=== PATIENT | male | born 1985 | race Caucasian/White ===

== ENCOUNTER 2019-07-09 11:33 | Emergency (ER) | payer OTHER, SELFPAY ==
--- NOTE | 2019-07-09 11:45 | DI.RAD.S_ITS ---
PROCEDURE: XR FINGER LT MIN 2V INDICATIONS: table saw accident TECHNIQUE: AP hand, 2 views of the left finger(s) acquired. COMPARISON: None. FINDINGS: Bones: Intra-articular fracture involving the proximal phalanx of the thumb at the IP joint. There is severe subluxation/dislocation of the thumb IP joint. Probable fracture involving the base of the distal phalanx of the thumb although not well visualized radiographically. Associated soft tissue laceration and swelling. IMPRESSION: Comminuted fracture dislocation at the thumb interphalangeal joint as above Dictated by: Deshawn Monahan M.D. on 07/09/2019 at 12:07 Approved by: Deshawn Monahan M.D. on 07/09/2019 at 12:09
[2019-07-09 11:53] VITALS: BP 122/71; PULSE 68; RESP 18; TEMP 36.7; O2SAT 99; BMI 26.6
[2019-07-09] MEDS: TET,DIPH,PERTUSS(ACELL),VAC/PF 0.5 ML SYRINGE IM (12:02)
[2019-07-09] MEDS: LIDO 1%/SOD BICARB 8.4% (10ML) 10 ML SYRINGE INJ (12:02)
[2019-07-09] MEDS: CEFAZOLIN 1 GM/50 ML FROZ.PIGGY IV (12:24)
--- NOTE | 2019-07-09 12:43 | ED.WOUNDLAC ---
HPI - Wound/Laceration <BERNARDA Denton - Last Filed: 07/09/19 16:36> General Chief Complaint: Wound/Laceration Stated Complaint: Cut thumb Time Seen by Provider: 07/09/19 11:39 Source: patient Mode of arrival: Family Vehicle Limitations: no limitations History of Present Illness HPI narrative: This is a 33-year-old male, nonsmoker, who presents to ED with chief complain of left thumb laceration by a table saw which occurred at 11:30 a.m. today. Patient was working on a fence and cutting a wooden board and states he was distracted briefly and looked away and table so grab his gloved finger. Patient right dominant hand. Is not sure last tetanus immunization. Patient reports is unable to feel/has sensation to left tip of thumb. Patient reports is unable to flex his affected thumb. Otherwise, patient is healthy and is not taking medications currently except multi-vitamins. Last meal was around 8 this morning. He had a few sips of water before coming into ED. Related Data Home Medications Medication Instructions Recorded Confirmed multivitamin with minerals [Daily 1 tab PO DAILY 07/09/19 07/09/19 Multivitamin-Minerals] Previous Rx's Medication Instructions Recorded cephalexin [Keflex] 500 mg PO Q6H 10 Days #40 cap 07/09/19 ondansetron 4 mg PO Q6H PRN #20 tab 07/09/19 oxycodone-acetaminophen [Percocet] 1 tab PO QID PRN #20 tab 07/09/19 Allergies Allergy/AdvReac Type Severity Reaction Status Date / Time hydrocodone [From Vicodin] Allergy Intermediate Nausea Verified 07/09/19 12:21 Review of Systems <BERNARDA Denton - Last Filed: 07/09/19 16:36> Review of Systems Narrative: General: Denies fever, chills, fatigue, malaise, sweats. HEENT: Denies sinus pain, ear pain, sore throat, difficulty swallowing, dizziness. Respiratory: Denies dyspnea, cough, wheezing, hemoptysis, sputum. Cardiovascular: Denies chest pain, palpitations, orthopnea, edema. Gastrointestinal: Denies nausea, vomiting, abdominal pain, diarrhea, constipation, melena. : Denies dysuria, frequency, incontinence, hematuria, urinary retention. Musculoskeletal: See HPI Skin: Denies rash, skin lesions, or other. Neurologic: Denies weakness, headache, numbness, change in speech, confusion, seizures, incoordination. Psychiatric: No concerning psychosocial issues. 12-point review of systems is negative except for those stated above. Patient History <BERNARDA Denton - Last Filed: 07/09/19 16:36> Medical History Healthy adult male (Acute) Social History Smoking Status: Never smoker Smoking Status: Never smoker alcohol intake frequency: 0-2 drinks per day Substance Use Type: does not use Exam <BERNARDA Denton - Last Filed: 07/09/19 16:36> Narrative Exam Narrative: General appearance: well developed, well nourished, in no acute distress. Head: normocephalic, atraumatic, no scalp lesions, non-tender. ENT: Hearing grossly intact. Nose without bleeding, purulent discharge. Mucous membrane moist, no mucosal lesion. Throat without erythema, tonsillar hypertrophy or exudate. Uvula in midline, airway patent. Neck/Thyroid: neck supple, full range of motion, no visible masses or meningeal signs. No JVD, non-tender without lymphadenopathy. Skin: no suspicious rashes, lesions over visible areas. Warm and dry and appropriate color for ethnicity. Heart: no clubbing, no cyanosis, no edema. S1 and S2 normal. RRR w/o murmurs, clicks, or bruits. Lungs: Breathing even and unlabored. No stridor. No accessory muscles used. Able to speak in full sentences. Chest: normal shape and expansion. Abdomen: non-obese, non-distended. Neurologic: alert and oriented. Cognitive exam, [employer] and PNS grossly intact on informal exam. Psych: good eye contact, normal affect. Initial Vital Signs Initial Vital Signs: Vital Signs Temperature 98.1 F 07/09/19 11:53 Pulse Rate 68 07/09/19 11:53 Respiratory Rate 18 07/09/19 11:53 Blood Pressure 122/71 07/09/19 11:53 Pulse Oximetry 99 07/09/19 11:53 Extrem Left upper extremity: hand Details: abnormal to inspection, neuromotor exam abnormal, neurosensory exam abnormal Details: radial nerve sensory function abnormal (Unable to feel distal left thumb), tendon exam abnormal (Unable to flex distal left thumb), tenderness, vascular exam Details: radial pulse present and abnormal capillary refill Details: of the thumb, abnormal ROM of finger and laceration (Palmar aspect diagonal deep laceration in IP joint in Left thumb with slow oozing bleeding) <Lydia Valentino MD - Last Filed: 07/09/19 17:27> Initial Vital Signs Initial Vital Signs: Vital Signs Temperature 98.1 F 07/09/19 11:53 Pulse Rate 68 07/09/19 11:53 Respiratory Rate 18 07/09/19 11:53 Blood Pressure 122/71 07/09/19 11:53 Pulse Oximetry 99 07/09/19 11:53 Procedures <BERNARDA Denton - Last Filed: 07/09/19 16:36> Laceration Repair Laceration 1: Site: hand (thumb in IP joint steve aspect, diagnoal appearance) Side (If applicable): left Size (cm): 6 Description: irregular Depth: involves muscle layer and involves tendon Local Anesthetic: lidocaine 1% and with bicarb Amount of anesthesia used (mL): 10 (given over 2 periods, diginal block) Pre-repair: wound explored and irrigated extensively Skin layer closed with: nylon Size (cm): 3-0 Number of sutures: 5 Technique: simple, interrupted Orthopedic Splinting/Casting Injury #1: Upper Extremity Injury Location: finger (thumb) Upper Extremity Immobilizer: thumb spica Post splinting neuro exam: intact Post splinting vascular exam: intact Placed by: Nursing Scores <BERNARDA Denton - Last Filed: 07/09/19 16:36> GCS [place] coma scale eye opening: Spontaneous Naomi coma scale verbal response: Orientated Naomi coma scale motor response: Obey commands [place] coma scale total score: 15 Course <BERNARDA Denton - Last Filed: 07/09/19 16:36> Orders Ordered: ED Orders 07/09/19 11:45 XR finger LT min 2V Stat Discontinued Medications Diphtheria/Tetanus/Acell Pertussis (Adacel) 0.5 ml IM .ONCE ONE Stop: 07/09/19 11:55 Last Admin: 07/09/19 12:02 Dose: 0.5 ml Documented by: ILENE Cefazolin Sodium/Dextrose (Ancef) 1 gm in 50 mls @ 200 mls/hr IV NOW ONE Stop: 07/09/19 12:34 Last Infusion: 07/09/19 12:46 Dose: 0 mls/hr Documented by: Admin: 07/09/19 12:24 Dose: 200 mls/hr Documented by: ILENE Lidocaine/Sodium Bicarbonate (Buffered Lidocaine 10 Ml Syr) 10 ml INJ NOW ONE Stop: 07/09/19 11:55 Last Admin: 07/09/19 12:02 Dose: 10 ml Documented by: ILENE Morphine Sulfate (Morphine) 4 mg IV NOW ONE Stop: 07/09/19 12:51 Last Admin: 07/09/19 12:58 Dose: Not Given Documented by: ILENE Ondansetron HCl (Zofran) 4 mg IV NOW ONE Stop: 07/09/19 12:51 Last Admin: 07/09/19 12:59 Dose: Not Given Documented by: ILENE Vital Signs Vital signs: Vital Signs - 8 hr 07/09/19 11:53 07/09/19 13:42 Temperature 98.1 F Pulse Rate 68 70 Respiratory Rate 18 14 Blood Pressure 122/71 Blood Pressure [Right Arm] 132/72 Pulse Oximetry 99 99 <Lydia Valentino MD - Last Filed: 07/09/19 17:27> Orders Ordered: ED Orders 07/09/19 11:45 XR finger LT min 2V Stat Discontinued Medications Diphtheria/Tetanus/Acell Pertussis (Adacel) 0.5 ml IM .ONCE ONE Stop: 07/09/19 11:55 Last Admin: 07/09/19 12:02 Dose: 0.5 ml Documented by: ILENE Cefazolin Sodium/Dextrose (Ancef) 1 gm in 50 mls @ 200 mls/hr IV NOW ONE Stop: 07/09/19 12:34 Last Infusion: 07/09/19 12:46 Dose: 0 mls/hr Documented by: Admin: 07/09/19 12:24 Dose: 200 mls/hr Documented by: ILENE Lidocaine/Sodium Bicarbonate (Buffered Lidocaine 10 Ml Syr) 10 ml INJ NOW ONE Stop: 07/09/19 11:55 Last Admin: 07/09/19 12:02 Dose: 10 ml Documented by: ILENE Morphine Sulfate (Morphine) 4 mg IV NOW ONE Stop: 07/09/19 12:51 Last Admin: 07/09/19 12:58 Dose: Not Given Documented by: ILENE Ondansetron HCl (Zofran) 4 mg IV NOW ONE Stop: 07/09/19 12:51 Last Admin: 07/09/19 12:59 Dose: Not Given Documented by: ILENE Vital Signs Vital signs: Vital Signs - 8 hr 07/09/19 11:53 07/09/19 13:42 Temperature 98.1 F Pulse Rate 68 70 Respiratory Rate 18 14 Blood Pressure 122/71 Blood Pressure [Right Arm] 132/72 Pulse Oximetry 99 99 MDM - Wound/Laceration <BERNARDA Denton - Last Filed: 07/09/19 16:36> Differential Diagnosis Differential diagnosis: Likely laceration and other (Fracture of thumb, dislocation of thumb, tendon injury of thumb) Medical Records Attestation: I reviewed the patient's medical records. Imaging Data XR-Thumb LT: Radiologist's Impression: [address] [address] XRay Report Signed Patient: Tobias Weber [facility]#: [id number] : 1985Acct:[id number] Age/Sex: 33 / MDate of Service: 07/09/19 Loc: ED Accession Number: [id number] Procedure: XR finger LT min 2V Ordering Provider: Tim Bautista PROCEDURE: XR FINGER LT MIN 2V INDICATIONS: table saw accident TECHNIQUE: AP hand, 2 views of the left finger(s) acquired. COMPARISON: None. FINDINGS: Bones: Intra-articular fracture involving the proximal phalanx of the thumb at the IP joint. There is severe subluxation/dislocation of the thumb IP joint. Probable fracture involving the base of the distal phalanx of the thumb although not well visualized radiographically. Associated soft tissue laceration and swelling. IMPRESSION: Comminuted fracture dislocation at the thumb interphalangeal joint as above Dictated by: Deshawn Monahan M.D. on 07/09/2019 at 12:07 Approved by: Deshawn Monahan M.D. on 07/09/2019 at 12:09 MDM Narrative Medical decision making narrative: This is a 33-year-old male who presents to ED with injury to non dominant hand left thumb injury with deep laceration in IP joint by a table saw for coming into ED around at 11:30 a.m.. Patient is unsure of last tetanus immunization and this has been updated today with Tdap. Patient reports no sensation distally to injury to left distal phalange with dusky color when patient was evaluated initially. There was slow oozing like bleeding from the injury site. Patient was unable to extend and flex distal phalanges of left thumb. X-ray test shows comminuted fracture and severe subluxation/dislocation at the thumb involving intra-articular IP joints . The patient was given Ancef of 1 gm via IV. was consulted via phone call at 1220 whether the patient could be seen by a hand surgeon or to transfer patient to trauma center. Dr. Milton called back and recommended to in place loose suture unaffected laceration and split the finger and to follow-up with hand surgeon, Dr. Garcia, on Sunday at [facility] orthopedics and have him continue with antibiotic medication. Please see procedural note on affected finger. This has been shared with the patient as a treatment plan. Patient discharged to home with Keflex 500 mg q.i.d. dose for 10 days, Percocet for pain management and Zofran for nausea as needed use. Reviewed wound care instruction with patient. Patient advised to follow-up with Dr. Garcia Sunday by calling [facility]. During the procedure, patient called/received several phone calls from family members and coworkers. Patient was apprehensive about the long wait to be evaluated by hand surgeon till Sunday. Before leaving the ED, patient states his had spoke with family member who is a doctor or in medical field and patient's spouse found a doctor who can help him in [place] after self-referred himself. Patient informed he will be discharged with information in his discharge instruction. Patient requested if I could talk to the physician that they found to follow up which I agree to. Requested his x-ray to be copied in CD form so the patient could take it with him to nursing staff. Received Dr. Lopez contact information from the nursing staff when the patient discharged to the patient. Attempted to contact Dr. Pack to inform the findings from x-ray and treatments in ED, but was not able to speak with him directly. According to the restaurant front manager staff, patient will not be evaluated till Sunday next week. Received fax inform in case to send patient's visit notes. Contacted patient over the phone to inform that he would not be evaluated till Sunday next week, I was told that patient and his is heading to telling him [facility] emergency room. He states they were told that he will be evaluated with a specialty physician since there is on-call physician available. [facility] Emergency room contacted and spoke with the charge nurse Meghann and provided the information on physical, radiology findings and treatments that has been completed in ED and patient/spouse had referred himself and they were not transferred by this clinician. At 1615, Dr. Schafer from [facility] ER called and informed the clinical findings, treatments have done and xray report. Discharge Plan Departure Patient Disposition: Home Clinical Impression: Open fracture dislocation of thumb Qualifiers: Encounter type: initial encounter Laterality: left Qualified Code(s): S62.502B - Fracture of unspecified phalanx of left thumb, initial encounter for open fracture Discharge Date/Time: 07/09/19 14:15 Activity Restrictions/Additional Instructions: You have been diagnosed with [open fracture and dislocation with deep laceration on left thumb involving tendon and IP joint. Please wear splint on affected hand.]. What to do: Please do not get your wound soaked in the water until suture removal. Keep your dressing intact for next 24 hrs. After then, you could remove your dressing, wash with soap and water. Pat dry with clean paper towel and dress it with antibiotic ointment. You can change dressing as needed and daily. Please monitor for signs and symptoms for infection such as increasing redness, swelling, warmth, pain, fever, purulent discharge. If this occurs, please return to ED or follow up with your primary care physician since your wound may be gotten infected. Please follow up with your primary care provider in 2-3 days for recheck wound. Your suture should be removed when you are evaluated by orthopedic/hand surgeon. Please keep your wound clean, dry and intact all times. *Take your medications as directed. Please take pain medications which is oxycodone 7.5/Tylenol 325 mg in a tab. You can take 3 times a day as needed for discomfort. You can add 1 tab of regular or extra-strength Tylenol with this. Please take Keflex/cephalexin antibiotic medication 4 times a day for next 10 days to prevent infection. You can start this medication tonight before you go to sleep. *Follow up hand/Orthopedic surgeon next few days. Let them know you were seen in the ED and that we asked you to be seen in follow up. *Return to ED if you have any new, worsening, or concerning symptoms, such as [severe pain, fever, unable to tolerate fluids, chest pain, breathing difficulty or any acute concerns]. Prescriptions: New cephalexin [Keflex] 500 mg capsule 500 mg PO Q6H 10 Days Qty: 40 RF: 0 oxycodone-acetaminophen [Percocet] 7.5-325 mg tablet 1 tab PO QID PRN (Reason: pain) Qty: 20 RF: 0 ondansetron 4 mg tablet,disintegrating 4 mg PO Q6H PRN (Reason: nausea and vomiting) Qty: 20 RF: 0 No Action multivitamin with minerals [Daily Multivitamin-Minerals] Tablet 1 tab PO DAILY RF: 0 Referrals: Sandor Garcia MD [Physician] -
--- NOTE | 2019-07-09 13:01 | PC.NURSE ---
Offered pt morphine w/ zofran for potential nausea. Pt declined it. Placed hand / thumb in anatomical position w/ support for thumb w/ improved pain control.
[2019-07-09 13:42] VITALS: BP 132/72; PULSE 70; RESP 14; O2SAT 99
== END 2019-07-09 14:15 | disposition home or self-care (01) ==
PROVIDERS: Emergency Provider Nurse Practitioner Family
DX: S62.502B Fracture of unspecified phalanx of left thumb, initial encounter for open fracture (principal); W29.3XXA Contact with powered garden and outdoor hand tools and machinery, initial encounter; Z23 Encounter for immunization
CPT/HCPCS: 13132; 29125; 36415; 64450; 73140; 90471; 96365; 99285; 90715; J2270; J2405

== ENCOUNTER → 2020-09-01 07:59 | Outpatient (CLI) | payer OTHER, SELFPAY ==
[2020-09-01] MEDS: COVID-19 VACC, Ad26(JANSSEN)/PF 0.5 ML IM (08:11)
== END ==
PROVIDERS: Visit Provider Internal Medicine
DX: Z23 Encounter for immunization (principal)
CPT/HCPCS: 0031A; 91303